=== PATIENT | female | born 1980 | race Caucasian/White ===

== ENCOUNTER → 2016-03-02 | Outpatient (CLI) | payer OTHER ==
[2016-03-02 14:26] LABS: Basophils % (A) 1 %; CH 34.5; CHCM 33.3; Eosinophils # (A) 0.1 k/uL (0-0.7); Eosinophils % (A) 3 %; HCT 36.3 % (34.0-46.0); HDW 2.48; HGB 11.7 gm/dL (11.4-16.0); Luc # (Auto) 0.12; Luc % (Auto) 3; Lymphocytes # (A) 1.2 k/uL (1.0-4.8); Lymphocytes % (A) 32 %; MCH 33.7 pg (25.0-35.0); MCHC 32.4 g/dL (31.0-37.0); MCV 104.1 fL (80.0-100.0); Macrocytosis Slight; Mean Platelet Volume 9.3; Monocytes # (A) 0.3 k/uL (0-1.0); Monocytes % (A) 7 %; Neutrophils % (A) 54 %; RBC 3.48 m/uL (3.80-5.40); RDW 13.4 % (11.5-15.5); WBC 3.8 k/uL (3.8-10.6); WBC (Perox) 4.07
[2016-03-02 14:43] LABS: ALT 37 U/L (9-52); AST 36 U/L (14-36); Alkaline Phosphatase 75 U/L (38-126); Anion Gap 6 mmol/L; Blood Urea Nitrogen 14 mg/dL (7-17); Calcium 8.9 mg/dL (8.4-10.2); Carbon Dioxide 28 mmol/L (22-30); Chloride 107 mmol/L (98-107); Cholesterol 156 mg/dL (<200); Glucose 90 mg/dL (74-99); HDL Cholesterol 57 mg/dL (40-60); Non-African American GFR(MDRD) >60 (>60 ml/min/1.73 sqM); Potassium 4.9 mmol/L (3.5-5.1); Sodium 141 mmol/L (137-145); Total Bilirubin 0.2 mg/dL (0.2-1.3); Total Protein 6.5 g/dL (6.3-8.2); Triglycerides 68 mg/dL (<150)
== END | disposition home or self-care (01) ==
LOC: LABWHC1 13:25
PROVIDERS: ATTEND Internal Medicine
DX: Z13.1 Encounter for screening for diabetes mellitus (principal); Z13.6 Encounter for screening for cardiovascular disorders; Z13.29 Encounter for screening for other suspected endocrine disorder
CPT/HCPCS: 36415; 80053; 80061; 84439; 84443; 85025

== ENCOUNTER → 2017-02-24 | Outpatient (CLI) | payer OTHER ==
--- NOTE | 2017-02-24 23:34 | MR ---
EXAMINATION TYPE: MR lumbar spine wo con DATE OF EXAM: 02/24/2017 COMPARISON: NONE HISTORY: Low back pain, sciatica TECHNIQUE: Multiplanar, multisequence images of the lumbar spine were acquired. The lumbar vertebra have normal alignment. There is mild decreased signal in the disc from L3 to S1. There is no significant disc space narrowing. There is a small posterior disc bulge at L5-S1. There i s no spinal stenosis. Lumbar nerve roots appear normal. The lumbar neural foramina appear widely larios nt. Sacroiliac joints appear normal. Posterior elements are intact. There is no paraspinal mass. Ther e is no compression fracture.. IMPRESSION: Small posterior disc bulge at L5-S1. Minor degenerative disc signal changes in the lower lumbar spine . No spinal stenosis. No fracture.
== END | disposition home or self-care (01) ==
LOC: RADMRIMAIN 19:43
PROVIDERS: ATTEND Family Medicine
DX: M51.17 Intervertebral disc disorders with radiculopathy, lumbosacral region (principal); M47.816 Spondylosis without myelopathy or radiculopathy, lumbar region
CPT/HCPCS: 72148

== ENCOUNTER → 2020-11-20 | Outpatient (CLI) | payer OTHER ==
[2020-11-20 13:09] VITALS: BP 126/90; PULSE 66; RESP 18; TEMP 97.7; BMI 38.6
--- NOTE | 2020-11-20 13:17 | P.HPBAR ---
Bariatric H&P - History & Physicial H&P Date: 11/20/20 History & Physicial: Visit/CC: initial visit Patient initial contact: Initial weight: Initial weight in pounds: Height: 5 ft 4.5 in Initial BMI: Last weight: Current weight: 103.6 kg Current weight in pounds: 228.40 Current BMI: 38.6 [place] body weight (based on NIH guidelines): 55.565 kg Excess body weight loss: The patient is a 40 year-old F who presents for Bariatric Assessment. She is looking bariatric surgery. She does not want the band. Highest weight is present at 240 pounds. She was 135 pounds 5 years ago. She has tried diet pills,calorie restriction. She is on Adipex. She has horrible gastroesophageal reflux disease for 3 years. She still has her gallbladder. She reports indigestion from milk. Her sister and mother had troubles with obesity. Mother controlled her weight with food portion control. No stomach or esophageal cancer. No Crohns or ulcerative colitis. No easy bruising or bleeding. She DVTs in herself. Her sister has blood clots, her half-sister. She has lower back pain, no hip pain, has foot pain. She has past history of smoking. She has trouble with lemonade. Food allergies described. Her mother had her gallbladder. Recommend US gallbladder and HIDA. Past Medical History History of Any Multi-Drug Resistant Organisms: None Reported Smoking Status: [facility] - Exam Vital Signs Temp Pulse Resp BP 97.7 F 66 18 126/90 11/20/20 12:57 11/20/20 12:57 11/20/20 12:57 11/20/20 12:57 Bariatric Checklist Checklist: Plan: Checklist: EGD: 1. Hiatal hernia: 2. H. Pylori: HgbA1c: Vitamin D: Smoking: Primary care physician referral: JOHNATHAN Guerrero ([facility]) Psychiatry clearance: Cardiology clearance: Sleep study: Diet journal: VTE risk score: VTE risk level: Rehab needs at discharge:
[2020-11-20 14:25] LABS: HCT 39.9 % (34.0-46.0); HGB 13.1 gm/dL (11.4-16.0); MCH 34.8 pg (25.0-35.0); MCHC 32.8 g/dL (31.0-37.0); Macrocytosis Slight; Mean Platelet Volume 8.7; Platelet Count 184 k/uL (150-450); RBC 3.77 m/uL (3.80-5.40); RDW 12.4 % (11.5-15.5); WBC 5.3 k/uL (3.8-10.6)
[2020-11-20 14:46] LABS: INR 0.9 (<1.2); Partial Thromboplastin Time 24.2 sec (22.0-30.0); Prothrombin Time 10.2 sec (9.0-12.0)
[2020-11-21 13:26] LABS: Zinc, Serum 75 ug/dL (60-130)
[2020-11-21 21:12] LABS: Folate, Serum 8.9 ng/mL (4.40-31.00)
[2020-11-22 10:27] LABS: % Iron Saturation 27.35 (12.00-45.00); African American GFR (CKD) 99.6 (60.0-200.0); Albumin 4.4 g/dL (3.8-4.9); Albumin/Globulin Ratio 1.55 (1.60-3.17); Anion Gap 12.8 mmol/L (4.00-12.00); BUN/Creat Ratio 14.23 Ratio (12.00-20.00); Calcium 9.3 mg/dL (8.7-10.3); Carbon Dioxide 22.2 mmol/L (21.6-31.8); Chol/HDL Ratio 2.84 Ratio; Globulin 2.8 g/dL (1.6-3.3); HDL Cholesterol 74.2 mg/dL (40.00-60.00); LDL Cholesterol,Calculated 118.8 mg/dL (0.0-131.0); Magnesium 2.2 mg/dL (1.5-2.4); Phosphorus 3.4 mg/dL (2.4-5.1); Potassium 4.3 mmol/L (3.5-5.5); Prealbumin 28.6 mg/dL (18.0-42.0); Total Bilirubin 0.7 mg/dL (0.30-1.20); Total Protein 7.2 g/dL (6.2-8.2); Triglycerides 89.8 mg/dL (0.00-149.00); VLDL Calculation 17.96 mg/dL (5.00-40.00)
== END | disposition home or self-care (01) ==
LOC: BARWHC3 12:35
PROVIDERS: ATTEND Surgery Plastic and Reconstructive Surgery
DX: E66.01 Morbid (severe) obesity due to excess calories (principal); D50.8 Other iron deficiency anemias; E44.0 Moderate protein-calorie malnutrition; E55.9 Vitamin D deficiency, unspecified; Z68.38 Body mass index [BMI] 38.0-38.9, adult
CPT/HCPCS: 84255; 84134; 84425; 80061; 80053; 82607; 82728; 82525; 82746; 83540; 83550; 83735; 84100; 84443; 84590; 84630; 85027; 85610; 85730; 82306; 83970; 83036; 80307; 93005; 36415; G0480; G0482; G0463; 80323; 99203

== ENCOUNTER → 2024-03-18 | Outpatient (CLI) | payer OTHER ==
--- NOTE | 2024-03-18 10:21 | MR ---
EXAMINATION TYPE: MR abdomen wo/w con DATE OF EXAM: 03/18/2024 9:41 AM INDICATION: Patient age:Female; 43 years old; Reason for study: [id number] abnormal findings on imaging liver; [facility]. COMPARISON: MRI lumbar spine 02/24/2017. Recent outside institution imaging is not available for compar candice. TECHNIQUE: Multiplanar multi-sequence imaging was performed without and with IV contrast. The patien t was given 7.5 ccs of Gadobutrol intravenously and dynamic imaging was performed. Post IV contrast s ubtraction images were also submitted for review. FINDINGS: LOWER CHEST: No gross irregularity. ABDOMEN Liver: Enlarged measuring 19.9 cm in CC dimension. No drop out of signal on out of phase imaging to s uggest hepatic steatosis. Noncirrhotic morphology. Inferior right hepatic lobe subcentimeter T2 hyper intense nonenhancing cyst. Posterior hypertrophic lobe segment 7 ill-defined 1.0 cm T2 hyperintense l esion with some restricted diffusion (series 701, image 53). There is suggestive peripheral nodular e nhancement on delayed phase however evaluation is limited due to respiratory motion. Gallbladder and Bile ducts: A few gallstones measuring up to 1.6 cm. No biliary ductal dilatation.. Pancreas: Unremarkable. Spleen: Unremarkable. Adrenal glands: Unremarkable. Kidneys: Unremarkable. Stomach and Bowel: Unremarkable as visualized. Peritoneum: No evidence of pneumoperitoneum, free fluid, or adenopathy. Vasculature: Unremarkable. No aortic aneurysm. Abdominal wall: Unremarkable. Musculoskeletal: The osseous structures appear intact. IMPRESSION: 1. Segment 7 hepatic 1 cm lesion suggesting a benign hemangioma however evaluation is limited due to respiratory motion. No recent imaging available for comparison. Consider follow-up MRI in 6 months i f there is continued clinical concern. 2. Mild hepatomegaly. 3. Cholelithiasis. [facility], , 03/18/2024 10:19 AM
== END | disposition home or self-care (01) ==
LOC: RADMRIMAIN 08:38
PROVIDERS: ATTEND Family Medicine
DX: K80.20 Calculus of gallbladder without cholecystitis without obstruction (principal); R93.2 Abnormal findings on diagnostic imaging of liver and biliary tract; R94.5 Abnormal results of liver function studies; R16.0 Hepatomegaly, not elsewhere classified
CPT/HCPCS: 74183; A9585